=== PATIENT | female | born 1950 | race Two or more races ===

== ENCOUNTER 2016-07-29 21:10 | Emergency (ER) | payer MEDICAID ==
[2016-07-29] MEDS ORDERED: CYMBALTA30 M1 PO (23:22)
[2016-07-29] MEDS ORDERED: NEURONTIN600 M1 PO (23:23)
[2016-07-29] MEDS ORDERED: DUREZOL5 M1 OP (23:23)
[2016-07-29] MEDS ORDERED: GLUCOTROL5 M1 PO (23:24)
[2016-07-29] MEDS ORDERED: IBUPROFEN600 M1 PO (23:24)
[2016-07-29] MEDS ORDERED: PRINIVIL10 M1 PO (23:24)
[2016-07-29] MEDS ORDERED: LYRICA50 MG/CAP PO (23:25)
[2016-07-29] MEDS ORDERED: LORATADINE10 M2 PO (23:25)
[2016-07-29] MEDS ORDERED: MECLIZINE HCL25 M3 PO (23:26)
[2016-07-29] MEDS ORDERED: GLUCOPHAGE500 M3 PO (23:26)
[2016-07-29] MEDS ORDERED: NAPROSYN500 M1 PO (23:26)
[2016-07-29] MEDS ORDERED: OMEPRAZOLE40 M2 PO (23:27)
[2016-07-29] MEDS ORDERED: TIMOPTIC10 ML OP (23:27)
[2016-07-29] MEDS ORDERED: ZOCOR40 M1 PO (23:27)
[2016-07-30] MEDS ORDERED: PEPCID40 M1 PO (00:33)
[2016-07-30] MEDS ORDERED: DELTASONE20 MG PO (00:33)
[2016-07-30] MEDS ORDERED: ALL DAY ALLERGY10 M7 PO (00:33)
[2016-12-08] MEDS ORDERED: POLYMYXIN B-TMP10 M1 OP (11:11)
[2016-12-08] MEDS ORDERED: ASPIRIN325 M3 PO (11:40)
[2016-12-11] MEDS ORDERED: PLAVIX75 M1 PO (13:38)
[2016-12-11] MEDS ORDERED: TYLENOL325 M2 PO (13:40)
[2016-12-11] MEDS ORDERED: ASPIRIN81 M1 PO (13:40)
[2016-12-11] MEDS ORDERED: FEOSOL325 M1 PO (13:43)
== END 2016-07-30 00:46 ==
LOC: EDMED 21:10
DX: T78.3XXA Angioneurotic edema, initial encounter (principal); E11.9 Type 2 diabetes mellitus without complications; I10 Essential (primary) hypertension; M81.0 Age-related osteoporosis without current pathological fracture; E78.5 Hyperlipidemia, unspecified; Z79.899 Other long term (current) drug therapy
CPT/HCPCS: J1200; J2930